=== PATIENT | female | born 1975 ===

== ENCOUNTER 2018-06-02 12:47 | Observation (INO) | payer OTHER ==
--- NOTE | 2018-06-02 14:03 | ED PDOC ---
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 She states she fell down 3 steps and sustained the injuries. Patient reports she thought her symptoms would improve without intervention, but her pain worsened yesterday, so she decided to come to ED today. She denies hitting her head or having any loss of consciousness. Patient has been taking aleve at home with her last dose yesterday. She has not taken any medications today [employer]. She states she is right hand dominant. Otherwise: (-) nausea, (-) vomiting, (-) dizziness, (-) headache, (-) recent fever, (-) chest pain, (-) abdominal pain, (-) blurred vision, (-) weakness, (-) numbness. 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 6 procedures to the right foot as a child - Family History Family History: States: Unknown Family Hx - Living Arrangements Living Arrangements: With Family - Social History Current smoker - smoking cessation education provided: No Drugs: Denies - Home Medications Home Medications: Ambulatory Orders Medication Instructions Recorded No Known Home Med 06/02/18 - Allergies Allergies/Adverse Reactions: Allergies Allergy/AdvReac Type Severity Reaction Status Date / Time Sulfa (Sulfonamide Allergy RASH Verified 06/02/18 13:19 Antibiotics) Review of Systems ROS Statement: Except As Marked, All Systems Reviewed And Found Negative Constitutional: Negative for: Fever Eyes: Negative for: Vision Change Cardiovascular: Negative for: Chest Pain Gastrointestinal: Negative for: Nausea, Vomiting, Abdominal Pain Musculoskeletal: Positive for: Neck Pain (right sided), Hand Pain (4th finger), Foot Pain (right) Neurological: Negative for: Weakness, Numbness, Headache, Dizziness, Other (LOC) Physical Exam - Reviewed Nursing Documentation Reviewed: Yes Vital Signs Reviewed: Yes - Physical Exam Comments: GENERAL APPEARANCE: Patient is awake, alert, oriented x 3, in no acute distress. Resting comfortably. SKIN: Warm, dry; (-) cyanosis. HEAD: (-) swelling and tenderness, with no palpable bony defect. EYES: (-) conjunctival injection ENMT: Mucous membranes moist. Nose: (-) tenderness. No oral trauma. Pharynx clear, uvula midline. Airway patent: (-) stridor. Full ROM of mandible without pain. NECK: Supple, FROM, (+) right paracervical and right trapezius tenderness with muscle spasm, (-) vertebral tenderness, (-) lymphadenopathy. CHEST AND RESPIRATORY: (-) rales, (-) rhonchi, (-) wheezes; breath sounds equal bilaterally. Respirations even and nonlabored. HEART AND CARDIOVASCULAR: (-) irregularity ABDOMEN AND GI: Soft; (-) tenderness (-) distention BACK: (-) midline tenderness. EXTREMITIES: Right upper extremity: (+) diffuse edema, ecchymosis, and tenderness to the right 4th digit; (+) decreased flexion secondary to pain, (+) sensation and capillary refill intact; remainder of hand, wrist and upper extremity are non tender with Full ROM (+) pulses Right Lower extremity: (+) multiple well healed surgical scars to the dorsum of right mid foot, (+) diffuse tenderness on right foot; (+) decreased ROM at baseline secondary to surgeries, (+) sensation and capillary refill intact, (-) edema, ecchymosis, erythema, or skin break. Ankle: (+) full ROM (-) tenderness, (-) calf tenderness, distal pulses 2+. NEURO AND PSYCH: GCS=15. Mental status as above. 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 EOMI and painles. (-) facial asymmetry. Tongue and uvula midline. Strength 5/5 in all extremities. No gross sensory deficits. Speech: clear. Cerebellar tests intact. - Laboratory Results Result Diagrams: 06/02/18 16:21 06/02/18 16:21 - ECG O2 Sat by Pulse Oximetry: 97 (RA) Pulse Ox Interpretation: Normal Medical Decision Making Medical Decision Making: Time: 134 Impression: cervical strain, acute finger and foot pain status post fall downstairs Plan: --Flexeril 10 mg PO (not driving home) --Toradol 30 mg IM --Right foot xray 3 views --Hand xrays 3 views Time: 141 Right hand xray FINDINGS: BONES: Fracture dislocation 4th digit proximal interphalangeal joint region. JOINTS: Normal. No osteoarthritic changes. SOFT TISSUES: Soft tissue swelling attests to the acuity of the fracture. OTHER FINDINGS: IMPRESSION: Acute oblique intra-articular fracture/dislocation middle phalanx right 4th digit. Time: 141 Right foot Xray findings: BONES: No acute fractures noted. A U-shaped 8 metallic screw associated with a 1st ta rsal metatarsal arthrodesis-is present-some osseous fusion mature appearing here is suggested. The navicular bone is abnormally narrow and misshapened- chronicity is inferred. JOINTS: Arthrosis advanced 1st metatarsal-phalangeal joint. Midfoot tarsal arthrosis in tarsal metatarsal osseous fusion/arthrodesis. Posterior subtalar joint arthrosis. Tail low navicular osteoarthrosis advanced appearing. Hammertoe orientations and clinodactyly suggested. SOFT TISSUES: Sheet like ossifications along the expected Achilles tendon distal site. Similar well corticated ossification in the plantar neurosis region. RF probable concomitant possible faint ossification and/or ossific debris lateral to the 1st metatarsal shaft. OTHER FINDINGS: None. IMPRESSION: No interval acute fracture suspect. Postop changes and arthrodesis/a mature appearing osseous fusion tarsal 1st metatarsal joint. Other soft tissue ossifications as above. Time: 1429 --In light of patient's xray findings, consult placed to Dr. Stewart(hand/plastics). Time: 1434 --Dr. Stewart is at bedside. Time: 1499 --Bedside reduction and splint performed by Dr Stewart. Dr Stewart recommends pre-op labs and will take patient to OR tomorrow. Dr Stewart contacted ophthalmology surgical technician who will see patient at bedside. Patient to be admitted to obs med/surg under Dr Stewart. Additional orders placed for medical clearance. Post reduction XRs ordered. Patient agreeable to admission. Time: 1540 EKG: NSR @ 74bpm (-) ST elevation, QTc 448 Date of service: 06/02/2018 HISTORY: clearance OR COMPARISON: No prior. FINDINGS: LUNGS: No active pulmonary disease. PLEURA: No significant pleural effusion identified, no pneumothorax apparent. CARDIOVASCULAR: No atherosclerotic calcification present Normal. OSSEOUS STRUCTURES: No significant abnormalities. VISUALIZED UPPER ABDOMEN: Normal. OTHER FINDINGS: None. IMPRESSION: No active disease. PROCEDURE: Right Hand Radiographs. (Post Reduction) HISTORY: post-reduction COMPARISON: None. TECHNIQUE: 3 views obtained. FINDINGS: BONES: The previously referenced 4th middle phalangeal intra-articular fracture di slocation (proximal interphalangeal joint) is again identified with overlying splinting with the 5th digit. The dorsal ulnar sided fracture fragment arising from this 4th proximal phalanx appears similarly dorsally displaced as before. No significant interval change between the pre and post reduction images is appreciated. JOINTS: Normal. No osteoarthritic changes. SOFT TISSUES: Soft tissue regional swelling as before OTHER FINDINGS: None. IMPRESSION: No significant tip apparent change in the intra-articular 4th phalangeal fracture-dislocation appearance as detailed above. Labs reviewed and grossly unremarkable. Scribe Attestation: Documented by Calvin George acting as a scribe for Xochitl Cisneros Provider Scribe Attestation: All medical record entries made by the Scribe were at my direction and personally dictated by me. I have reviewed the chart and agree that the record accurately reflects my personal performance of the history, physical exam, medical decision making, and the department course for this patient. I have also personally directed, reviewed, and agree with the discharge instructions and disposition. Disposition - Clinical Impression Clinical Impression: Displaced fracture of middle phalanx of finger of right hand, Cervical strain, acute, Fall down stairs, Foot pain - Patient ED Disposition Is Patient to be Admitted: Yes (med/surg obs) Discussed With : Zuleika Stewart Doctor Will See Patient In The: ED Counseled Patient/Family Regarding: Studies Performed, Diagnosis - Disposition Disposition Time: 15:00 Condition: STABLE - Pt Status Changed To: Hospital Disposition Of: Observation (med/surg for OR tomorrow) - POA Present On Arrival: Falls Or Trauma (1 week ago) Results - Diagnostic Imaging Results Radiology Results Foot X-Ray 06/02/18 13:44 IMPRESSION: No interval acute fracture suspect. Postop changes and arthrodesis/a mature appearing osseous fusion tarsal 1st metatarsal joint. Other soft tissue ossifications as above. Hand X-Ray 06/02/18 13:44 IMPRESSION: Acute oblique intra-articular fracture/dislocation middle phalanx right 4th digit. Chest X-Ray 06/02/18 15:00 IMPRESSION: No active disease. Hand X-Ray 06/02/18 15:02
--- NOTE | 2018-06-02 14:19 | RAD ---
PROCEDURE: Right Hand Radiographs. HISTORY: s/p fall, r/o fracture of 4th digit COMPARISON: None. TECHNIQUE: 3 views obtained. FINDINGS: BONES: Fracture dislocation 4th digit proximal interphalangeal joint region. JOINTS: Normal. No osteoarthritic changes. SOFT TISSUES: Soft tissue swelling attests to the acuity of the fracture. OTHER FINDINGS: IMPRESSION: Acute oblique intra-articular fracture/dislocation middle phalanx right 4th digit.
--- NOTE | 2018-06-02 14:20 | RAD ---
Date of service: 06/02/2018 PROCEDURE: Right Foot Radiographs. HISTORY: s/p fall, r/o fracture; hx of surgery COMPARISON: None. TECHNIQUE: 3 views obtained. FINDINGS: BONES: No acute fractures noted. A U-shaped 8 metallic screw associated with a 1st tarsal metatarsal arthrodesis-is present-some osseous fusion mature appearing here is suggested. The navicular bone is abnormally narrow and misshapened-chronicity is inferred. JOINTS: Arthrosis advanced 1st metatarsal-phalangeal joint. Midfoot tarsal arthrosis in tarsal metatarsal osseous fusion/arthrodesis. Posterior subtalar joint arthrosis. Tail low navicular osteoarthrosis advanced appearing. Hammertoe orientations and clinodactyly suggested. SOFT TISSUES: Sheet like ossifications along the expected Achilles tendon distal site. Similar well corticated ossification in the plantar neurosis region. RF probable concomitant possible faint ossification and/or ossific debris lateral to the 1st metatarsal shaft. OTHER FINDINGS: None. IMPRESSION: No interval acute fracture suspect. Postop changes and arthrodesis/a mature appearing osseous fusion tarsal 1st metatarsal joint. Other soft tissue ossifications as above.
--- NOTE | 2018-06-02 16:13 | RAD ---
Date of service: 06/02/2018 HISTORY: clearance OR COMPARISON: No prior. FINDINGS: LUNGS: No active pulmonary disease. PLEURA: No significant pleural effusion identified, no pneumothorax apparent. CARDIOVASCULAR: No atherosclerotic calcification present Normal. OSSEOUS STRUCTURES: No significant abnormalities. VISUALIZED UPPER ABDOMEN: Normal. OTHER FINDINGS: None. IMPRESSION: No active disease.
--- NOTE | 2018-06-02 16:14 | RAD ---
PROCEDURE: Right Hand Radiographs. HISTORY: pre-reduction COMPARISON: None. TECHNIQUE: 3 views obtained. FINDINGS: BONES: The previously referenced 4th middle phalangeal intra-articular fracture dislocation (proximal interphalangeal joint) is again identified with overlying splinting with the 5th digit. The dorsal ulnar sided fracture fragment arising from this 4th proximal phalanx appears similarly dorsally displaced as before. No significant interval change between the pre and post reduction images is appreciated. JOINTS: Normal. No osteoarthritic changes. SOFT TISSUES: Soft tissue regional swelling as before OTHER FINDINGS: None. IMPRESSION: No significant tip apparent change in the intra-articular 4th phalangeal fracture-dislocation appearance as detailed above.
[2018-06-02 16:33] LABS: BASO # 0.1 K/uL (0.0-0.2); BASO % 0.7 % (0.0-2.0); EOS # 0.2 K/uL (0.0-0.7); EOS % 1.8 % (0.0-4.0); HEMOGLOBIN 12.7 g/dL (12.0-16.0); LYMPH # 3.4 K/uL (1.0-4.3); LYMPH % 27.7 % (20.0-40.0); MEAN CORPUSCULAR HEMOGLOBIN 29.4 pg (27.0-31.0); MEAN CORPUSCULAR HGB CONC 33.4 g/dL (33.0-37.0); MEAN PLATELET VOLUME 8.2 fl (7.2-11.7); MONO # 0.6 K/uL (0.0-0.8); MONO % 4.6 % (0.0-10.0); NEUT # 8.1 K/uL (1.8-7.0); NEUT % 65.2 % (50.0-75.0); NRBC % 0.1 % (0.0-0.0); RBC 4.34 Mil/uL (3.80-5.20); RED CELL DISTRIBUTION WIDTH 14.4 % (11.5-14.5); WHITE BLOOD COUNT 12.4 K/uL (4.8-10.8)
[2018-06-02 16:36] LABS: ALB/GLOB RATIO 1.3 (1.0-2.1); ALBUMIN 4.1 g/dL (3.5-5.0); ALT/SGPT 37 U/L (9-52); AST/SGOT 30 U/L (14-36); BLOOD UREA NITROGEN 13 mg/dl (7-17); CALCIUM 9.1 mg/dL (8.4-10.2); GFR NON-AFRICAN AMERICAN > 60
[2018-06-02 16:54] LABS: INR 0.9; PROTHROMBIN TIME 10.3 Seconds (9.8-13.1)
[2018-06-02] MEDS ORDERED: Morphine 4 MG/ML VIAL IVP PRN (17:39)
--- NOTE | 2018-06-02 17:57 | CP.PCM.HP ---
History of Present Illness - History of Present Illness History of Present Illness: Plastic Surgery H & P for Dr. Froylan Lofton, PGY-2 Pt seen/examined at bedside 43F w/PMH sig for clubbed R foot and hx of brain aneurysm s/p surgery in [facility] admitted for Right 4th phalangeal fracture x 7 days. Pt reports she was walking up the 3 stairs to her home when she caught her foot on a stair and fell. She attempted to catch herself with her right hand then heard a crunching sound, resulting in progressive pain, swelling, bruising and decreased ability to flex her 4th finger at the middle joint. Pt reports 2 days later, she was talking on wet pavement and fell again, catching herself with her right forearm. Pt reported to the ED today due to right posterior neck pain, upon evaluation was found to have a R 4th middle phalangeal intra-articular fracture dislocation. Attending attempted manual reduction in ED without success. Pt reports continued pain, swelling, decreased mobilty of 4th finger. Denies N & V, F & C, dizziness, LOC, vision changes, CP, SOB, changes in bowel or bladder habits, other complaints at this time. PMH: brain aneurysm (1999), clubbed R foot PSH: Brain surgery, R foot surgery x 6 All: Sulfa SH: Denies ETOH, tobacco or illicit drug use FH: Non contributory PMD: in [facility] Present on Admission - Present on Admission Any Indicators Present on Admission: No History of DVT/PE: No History of Uncontrolled Diabetes: No Urinary Catheter: No Decubitus Ulcer Present: No Review of Systems - Review of Systems All systems: reviewed and no additional remarkable complaints except - Constitutional Constitutional: absent: Chills, Fever, Frequent Falls, Headache - EENT Ears: absent: Dizziness - Cardiovascular Cardiovascular: absent: Chest Pain - Gastrointestinal Gastrointestinal: absent: Abdominal Pain, Nausea, Vomiting - Genitourinary Genitourinary: absent: Change in Urinary Stream - Musculoskeletal Musculoskeletal: Neck Pain (posterior neck), Numbness (of right 4th finger). absent: Tingling - Integumentary Integumentary: absent: New Lesions - Neurological Neurological: absent: Disequilibrium, Dizziness, Syncope - Psychiatric Psychiatric: absent: Change in Appetite Past Patient History - Past Social History Smoking Status: Never Smoked - PSYCHIATRIC Hx Substance Use: No Meds Allergies/Adverse Reactions: Allergies Allergy/AdvReac Type Severity Reaction Status Date / Time Sulfa (Sulfonamide Allergy RASH Verified 06/02/18 13:19 Antibiotics) Physical Exam - Constitutional Appears: Non-toxic, No Acute Distress - Head Exam Head Exam: ATRAUMATIC, NORMAL INSPECTION, NORMOCEPHALIC - Eye Exam Eye Exam: EOMI, Normal appearance - ENT Exam ENT Exam: Mucous Membranes Moist, Normal Exam - Neck Exam Neck exam: Positive for: Full Rom. Negative for: Normal Inspection (muscle spasm of right posterior neck muscles) - Respiratory Exam Respiratory Exam: NORMAL BREATHING PATTERN - Cardiovascular Exam Cardiovascular Exam: REGULAR RHYTHM, +S1, +S2 - GI/Abdominal Exam GI & Abdominal Exam: Soft. absent: Distended (obese) - Extremities Exam Additional comments: Right hand with splint in place over 4th & 5th digits. Intact sensation, able to flex and extend distal phalanges. Swelling of 4th & 5th fingers, hand and wrist. - Neurological Exam Neurological exam: Alert, CN II-XII Intact, Oriented x3 - Psychiatric Exam Psychiatric exam: Normal Affect, Normal Mood - Skin Skin Exam: Dry, Intact, Normal Color, Warm Results - Vital Signs Recent Vital Signs: Last Vital Signs Temp 98.4 F 06/02/18 13:17 Pulse 82 06/02/18 13:17 Resp 16 06/02/18 13:17 BP 151/87 H 06/02/18 13:17 Pulse Ox 97 06/02/18 16:51 - Labs Result Diagrams: 06/02/18 16:21 06/02/18 16:21 Labs: Laboratory Results - last 24 hr 06/02/18 06/02/18 06/02/18 16:21 16:21 16:21 WBC 12.4 H RBC 4.34 Hgb 12.7 Hct 38.2 MCV 88.0 MCH 29.4 MCHC 33.4 RDW 14.4 Plt Count 347 MPV 8.2 Neut % (Auto) 65.2 Lymph % (Auto) 27.7 [place] % (Auto) 4.6 Eos % (Auto) 1.8 Baso % (Auto) 0.7 Neut # (Auto) 8.1 H Lymph # (Auto) 3.4 [place] # (Auto) 0.6 Eos # (Auto) 0.2 Baso # (Auto) 0.1 PT 10.3 INR 0.9 APTT 29.0 Sodium 135 Potassium 3.7 Chloride 101 Carbon Dioxide 26 Anion Gap 12 BUN 13 Creatinine 0.6 L Est GFR ( Amer) > 60 Est GFR (Non-Af Amer) > 60 Random Glucose 106 H Calcium 9.1 Total Bilirubin 0.2 AST 30 ALT 37 Alkaline Phosphatase 95 Total Protein 7.3 Albumin 4.1 Globulin 3.2 Albumin/Globulin Ratio 1.3 Assessment & Plan - Assessment and Plan (Free Text) Assessment: 43F w/4th R middle phalangeal intra-articular fracture dislocation s/p fall Plan: Admit to med/surg VS Q8H Activity as tolerated- ambulates OOBTC HHD NPO pMN Pain control IVF Anti-emetic PRN Elevate Right hand FU AM labs FU medical clearance prior to OR SCDs for DVT ppx DW Dr. Terry Lofton, PGY-2 - Date & Time Date: 06/02/18 Time: 18:01 Decision To Admit - Pt Status Changed To: Hospital Disposition Of: Observation - . Bed Request Type: Med/Surg Admitting Physician: Zuleika Stewart
--- NOTE | 2018-06-02 18:11 | CP.PCM.CON ---
<Mima Verduzco - Last Filed: 06/02/18 18:42> History of Present Illness - History of Present Illness History of Present Illness: 43 Female patient w/PMH of clubbed R foot and hx of brain aneurysm s/p surgery in [facility] admitted for Right 4th phalangeal fracture x 7 days. Pt reports she was walking up the 3 stairs to her home when she caught her foot on a stair and fell. Pt came to the ED today due to neck pain and upon evaluation was found to have a R 4th middle phalangeal intra-articular fracture dislocation. Patient endorses last head CT done 10 years ago and wnl. Patient denies any h/o HTN, HLD or DM and she does not take any medication on regular bases. She reports she live in 3 floor and she is able to climb the stairs and walk around w/o get sob or chest pain. Otherwise she denies recent F/C/N/V, dizziness, LOC, blurry vision, [place], CP, SOB, changes in bowel or bladder habits, other complaints at this time. PMD: in [facility] PMH: brain aneurysm, clubbed R foot PSH: Brain surgery on 1999, R foot surgery x 6 All: Sulfa SH: Denies ETOH, tobacco or illicit drug use FH: Non contributory Review of Systems - Review of Systems All systems: reviewed and no additional remarkable complaints except (HPI) Past Patient History - Past Social History Smoking Status: Never Smoked - PSYCHIATRIC Hx Substance Use: No Meds Allergies/Adverse Reactions: Allergies Allergy/AdvReac Type Severity Reaction Status Date / Time Sulfa (Sulfonamide Allergy RASH Verified 06/02/18 13:19 Antibiotics) - Medications Medications: Current Medications Lactated Ringer's (Lactated Ringer's) 1,000 mls @ 150 mls/hr IV .Q6H40M [facility] Ketorolac Tromethamine (Toradol) 15 mg IVP Q6 PRN PRN Reason: Pain, moderate (4-7) Morphine Sulfate (Morphine) 4 mg IVP Q4 PRN PRN Reason: Pain, severe (8-10) Ondansetron HCl (Zofran Inj) 4 mg IVP Q6 PRN PRN Reason: Nausea/Vomiting Physical Exam - Constitutional Appears: No Acute Distress - Head Exam Head Exam: NORMAL INSPECTION - Eye Exam Eye Exam: EOMI, PERRL. absent: Nystagmus Pupil Exam: NORMAL ACCOMODATION, PERRL - ENT Exam ENT Exam: Mucous Membranes Moist - Neck Exam Neck exam: Positive for: Full Rom, Normal Inspection. Negative for: Lymphadenopathy, Thyromegaly - Respiratory Exam Respiratory Exam: Clear to Auscultation Bilateral, NORMAL BREATHING PATTERN. absent: Rales, Wheezes - Cardiovascular Exam Cardiovascular Exam: REGULAR RHYTHM, +S1, +S2. absent: Tachycardia, Systolic Murmur - GI/Abdominal Exam GI & Abdominal Exam: Normal Bowel Sounds, Soft. absent: Distended, Tenderness - Extremities Exam Extremities exam: Negative for: calf tenderness, pedal edema Additional comments: RU arm: cast noted in place, clean and intact, able to move rest of fingers w/o difficulty, sensation intact. - Back Exam Back exam: NORMAL INSPECTION. absent: CVA tenderness (L), CVA tenderness (R), paraspinal tenderness - Neurological Exam Neurological exam: Alert, CN II-XII Intact, Oriented x3 - Psychiatric Exam Psychiatric exam: Normal Affect - Skin Skin Exam: Dry, Normal Color, Warm Results - Vital Signs Recent Vital Signs: Last Vital Signs Temp 98.4 F 06/02/18 13:17 Pulse 82 06/02/18 13:17 Resp 16 06/02/18 13:17 BP 151/87 H 06/02/18 13:17 Pulse Ox 97 06/02/18 16:51 - Labs Result Diagrams: 06/02/18 16:21 06/02/18 16:21 Labs: Laboratory Results - last 24 hr 06/02/18 06/02/18 06/02/18 16:21 16:21 16:21 WBC 12.4 H RBC 4.34 Hgb 12.7 Hct 38.2 MCV 88.0 MCH 29.4 MCHC 33.4 RDW 14.4 Plt Count 347 MPV 8.2 Neut % (Auto) 65.2 Lymph % (Auto) 27.7 [place] % (Auto) 4.6 Eos % (Auto) 1.8 Baso % (Auto) 0.7 Neut # (Auto) 8.1 H Lymph # (Auto) 3.4 [place] # (Auto) 0.6 Eos # (Auto) 0.2 Baso # (Auto) 0.1 PT 10.3 INR 0.9 APTT 29.0 Sodium 135 Potassium 3.7 Chloride 101 Carbon Dioxide 26 Anion Gap 12 BUN 13 Creatinine 0.6 L Est GFR ( Amer) > 60 Est GFR (Non-Af Amer) > 60 Random Glucose 106 H Calcium 9.1 Total Bilirubin 0.2 AST 30 ALT 37 Alkaline Phosphatase 95 Total Protein 7.3 Albumin 4.1 Globulin 3.2 Albumin/Globulin Ratio 1.3 Assessment & Plan - Assessment and Plan (Free Text) Assessment: 43 yo Female admitted due to 4th R middle phalangeal intra-articular dislocated fracture, s/p mechanical fall. Plan: - VSS - EKG: NSR at 76 bpm, no acute changes - CXR: negative for active lung disease - NPO after MN - Pain control - IVF - labs in am - f/u surgery recommendations - Patient medically cleared for surgery Patient discussed with Dr Swain <Prisca Swain - Last Filed: 06/04/18 21:45> Results - Vital Signs Recent Vital Signs: Last Vital Signs Temp 97.5 F L 06/04/18 07:51 Pulse 81 06/04/18 07:51 Resp 19 06/04/18 07:51 BP 129/85 06/04/18 07:51 Pulse Ox 97 06/04/18 07:51 - Labs Result Diagrams: 06/03/18 06:14 06/03/18 06:14 Attending/Attestation - Attestation I have personally seen and examined this patient.: Yes I have fully participated in the care of the patient.: Yes I have reviewed all pertinent clinical information: Yes Notes (Text): agree with findings and plan as above.
[2018-06-02] MEDS: Lactated Ringer's 1,000 ML IV SCH (23:50)
[2018-06-03 05:23] LABS: SQUAMOUS EPITHIAL < 1 /hpf (0-5); URINE BILIRUBIN NEGATIVE (NEGATIVE); URINE BLOOD NEGATIVE (NEGATIVE); URINE CLARITY CLEAR (Clear); URINE COLOR YELLOW (YELLOW); URINE GLUCOSE (UA) NEG (NEGATIVE); URINE LEUKOCYTE ESTERASE NEG Leu/uL (Negative); URINE PROTEIN NEGATIVE (NEGATIVE); URINE UROBILINOGEN 0.2-1.0 mg/dL (0.2-1.0)
[2018-06-03 07:07] LABS: HEMOGLOBIN 12.2 g/dL (12.0-16.0); MEAN CELL VOLUME 88.6 fl (81.0-99.0); MEAN CORPUSCULAR HEMOGLOBIN 29.1 pg (27.0-31.0); MEAN CORPUSCULAR HGB CONC 32.9 g/dL (33.0-37.0); RBC 4.19 Mil/uL (3.80-5.20); RED CELL DISTRIBUTION WIDTH 14.4 % (11.5-14.5); WHITE BLOOD COUNT 12.1 K/uL (4.8-10.8)
[2018-06-03 07:19] LABS: INR 0.9; PROTHROMBIN TIME 10.6 Seconds (9.8-13.1)
[2018-06-03 07:22] LABS: PARTIAL THROMBOPLASTIN TIME 28.1 Seconds (25.6-37.1)
[2018-06-03 07:44] LABS: BLOOD UREA NITROGEN 17 mg/dl (7-17); CALCIUM 9.1 mg/dL (8.4-10.2); GFR NON-AFRICAN AMERICAN > 60
--- NOTE | 2018-06-03 08:17 | CP.PCM.PN ---
<GrazynaCaroline - Last Filed: 06/03/18 13:08> Subjective - Date & Time of Evaluation Date of Evaluation: 06/03/18 Time of Evaluation: 08:00 - Subjective Subjective: 43 yo Female admitted due to 4th R middle phalangeal intra-articular dislocated fracture, s/p mechanical fall. Pt seen and examined at bedside. Reports right sided headache and r hand pain. Denies weakness or loss of feeling in hand. Pt denies F/C/CP/SOB/N/V/D/C or dysuria. Objective - Vital Signs/Intake and Output Vital Signs (last 24 hours): Temp Pulse Resp BP Pulse Ox 97.1 F L 65 20 145/89 95 06/03/18 07:50 06/03/18 07:50 06/03/18 07:50 06/03/18 07:50 06/03/18 07:50 - Medications Medications: Current Medications Lactated Ringer's (Lactated Ringer's) 1,000 mls @ 150 mls/hr IV .[id number] STEPH Last Admin: 06/02/18 23:50 Dose: 150 mls/hr Ketorolac Tromethamine (Toradol) 15 mg IVP Q6 PRN PRN Reason: Pain, moderate (4-7) Last Admin: 06/03/18 04:23 Dose: 15 mg Morphine Sulfate (Morphine) 4 mg IVP Q4 PRN PRN Reason: Pain, severe (8-10) Ondansetron HCl (Zofran Inj) 4 mg IVP Q6 PRN PRN Reason: Nausea/Vomiting - Labs Labs: 06/03/18 06:14 06/03/18 06:14 PT 10.6 Seconds (9.8-13.1) 06/03/18 06:14 INR 0.9 06/03/18 06:14 APTT 28.1 Seconds (25.6-37.1) 06/03/18 06:14 - Constitutional Appears: Non-toxic, No Acute Distress - Head Exam Head Exam: NORMAL INSPECTION - Eye Exam Eye Exam: EOMI - ENT Exam ENT Exam: Mucous Membranes Moist - Respiratory Exam Respiratory Exam: Clear to Ausculation Bilateral. absent: Rales, Rhonchi, Wheezes - Cardiovascular Exam Cardiovascular Exam: RRR, +S1, +S2 - GI/Abdominal Exam GI & Abdominal Exam: Soft, Normal Bowel Sounds. absent: Tenderness - Extremities Exam Additional comments: Right hand 4th and 5th digit, and wrist wrapped in rishi bandage clean and dry - Neurological Exam Neurological Exam: Alert, Awake, Oriented x3 Assessment and Plan - Assessment and Plan (Free Text) Assessment: 43 yo Female admitted due to 4th R middle phalangeal intra-articular dislocated fracture, s/p mechanical fall. Plan: 4th R middle phalangeal intra-articular dislocated fracture - pt evaluated,VSS, labs reviewed, Leukocytosis-likely stress rxn - EKG: NSR at 76 bpm, no acute changes - CXR: negative for active lung disease - Pain control, SCD's, tylenol for headache - NPO diet - LR's @150 - Patient medically stable for surgery - Low risk for moderate risk surgery Medicine team appreciates the consult, reconsult if necessary <Prisca Swain - Last Filed: 06/04/18 21:43> Objective - Vital Signs/Intake and Output Vital Signs (last 24 hours): Temp Pulse Resp BP Pulse Ox 97.5 F L 81 19 129/85 97 06/04/18 07:51 06/04/18 07:51 06/04/18 07:51 06/04/18 07:51 06/04/18 07:51 - Labs Labs: 06/03/18 06:14 06/03/18 06:14 PT 10.6 Seconds (9.8-13.1) 06/03/18 06:14 INR 0.9 06/03/18 06:14 APTT 28.1 Seconds (25.6-37.1) 06/03/18 06:14 Attending/Attestation - Attestation I have personally seen and examined this patient.: Yes I have fully participated in the care of the patient.: Yes I have reviewed all pertinent clinical information, including history, physical exam and plan: Yes Notes (Text): agree with findings and plan as above.
--- NOTE | 2018-06-03 08:21 | CARD ---
APPROVED REPORT Date of service: 06/02/2018 EKG Measurement Heart [id number] <Conclusion> Normal sinus rhythm Nonspecific T wave abnormality Abnormal ECG
[2018-06-03] MEDS: Lactated Ringer's 1,000 ML IV SCH ×2 (11:55→21:00)
[2018-06-03] MEDS ORDERED: Lidocaine 1% Inj (20ml) ONE (14:55)
[2018-06-03] MEDS ORDERED: Succinylcholine Chloride 20 mg/ml Syr (5 ml) IV ONE (15:03)
[2018-06-03] MEDS ORDERED: Propofol 10 mg/ml Inj (20 ML) ONE (15:03)
[2018-06-03] MEDS ORDERED: Lactated Ringer's 1,000 ML IV ONE (15:07)
[2018-06-03] MEDS: Bupivacaine 0.5% Inj(30mL) ONE ×2 (15:35→16:55)
[2018-06-03] MEDS ORDERED: Lactated Ringer's 500 ML IV ONE (16:40)
[2018-06-03] MEDS ORDERED: HYDROmorphone 0.5 mg/0.5 ml ISec IVP PRN (17:19)
[2018-06-03] MEDS ORDERED: Lactated Ringer's 1,000 ML IV SCH (17:30)
--- NOTE | 2018-06-03 21:58 | PCM.SURG1 ---
Surgeon's Initial Post Op Note - Surgeon's Notes Surgeon: Dr. Stewart Grader Green Meat: Dr. Magaña, PGY 1 Type of Anesthesia: General Endo Anesthesia Administered By: Dr. Yadav Pre-Operative Diagnosis: intra-articular right 4th finger phalageal fracture- dislocation Operative Findings: see operative report Post-Operative Diagnosis: intra-articular right 4th finger phalageal fracture- dislocation Operation Performed: open reduction and internal fixation of right ring finger phalangeal fracture Specimen/Specimens Removed: none Estimated Blood Loss: EBL {In ML}: 2 Blood Products Given: N/A Drains Used: No Drains Post-Op Condition: Good Date of Surgery/Procedure: 06/03/18 Time of Surgery/Procedure: 15:00
[2018-06-04 07:51] VITALS: BP 129/85; PULSE 81; RESP 19; TEMP 97.5; O2SAT 97
--- NOTE | 2018-06-04 08:17 | CP.PCM.PN ---
Subjective - Date & Time of Evaluation Date of Evaluation: 06/04/18 Time of Evaluation: 08:17 - Subjective Subjective: General Surgery Note: Dr. Stewart 43 year old female patient seen and examined at bedside this AM, POD#1 right 4th finger ORIF of phalanx. Patient resting comfortably in bed, no acute events overnight. She admits to right hand pain this morning, however pain is well controlled with the pain medication she has been given. Cast clean/dry/intact. R arm elevated at this time. Denies nausea/vomiting/fever/shortness of breath. Objective - Vital Signs/Intake and Output Vital Signs (last 24 hours): Temp Pulse Resp BP Pulse Ox 97.5 F L 81 19 129/85 97 06/04/18 07:51 06/04/18 07:51 06/04/18 07:51 06/04/18 07:51 06/04/18 07:51 - Medications Medications: Current Medications Lactated Ringer's (Lactated Ringer's) 1,000 mls @ 75 mls/hr IV .[id number] STEPH Last Admin: 06/04/18 07:20 Dose: Not Given Ketorolac Tromethamine (Toradol) 30 mg IVP Q6 PRN PRN Reason: Pain, moderate (4-7) Last Admin: 06/03/18 22:04 Dose: 30 mg Morphine Sulfate (Morphine) 4 mg IVP Q4 PRN PRN Reason: Pain, severe (8-10) Last Admin: 06/04/18 05:41 Dose: 4 mg Ondansetron HCl (Zofran Inj) 4 mg IVP Q6 PRN PRN Reason: Nausea/Vomiting - Labs Labs: 06/03/18 06:14 06/03/18 06:14 PT 10.6 Seconds (9.8-13.1) 06/03/18 06:14 INR 0.9 06/03/18 06:14 APTT 28.1 Seconds (25.6-37.1) 06/03/18 06:14 - Constitutional Appears: Non-toxic, No Acute Distress - Head Exam Head Exam: ATRAUMATIC, NORMOCEPHALIC - Eye Exam Eye Exam: Normal appearance Pupil Exam: NORMAL ACCOMODATION - ENT Exam ENT Exam: Mucous Membranes Moist - Respiratory Exam Respiratory Exam: NORMAL BREATHING PATTERN - Cardiovascular Exam Cardiovascular Exam: REGULAR RHYTHM - GI/Abdominal Exam GI & Abdominal Exam: Soft, Normal Bowel Sounds. absent: Distended, Tenderness - Extremities Exam Extremities Exam: Normal Capillary Refill. absent: Calf Tenderness Additional comments: Cast clean/dry/intact CFT WNL - Neurological Exam Neurological Exam: Alert, Awake, Oriented x3 - Psychiatric Exam Psychiatric exam: Normal Affect, Normal Mood - Skin Skin Exam: Warm Assessment and Plan - Assessment and Plan (Free Text) Assessment: 43 year old female patient POD#1 right 4th finger ORIF of phalanx, s/p mechanical fall. Plan: - Pain control - Ice and elevate PRN - Patient stable for d/c from surgery standpoint - Further recs per Dr. Terry Garza PGY1
--- NOTE | 2018-06-04 08:42 | CP.PCM.DIS ---
Provider - Provider Date of Admission: 06/02/18 15:08 Attending physician: Zuleika Stewart MD Consults: 06/02/18 17:46 Internal Medicine Consult Stat Comment: Consulting Provider: Prisca Swain Consulting Physician: Prisca Swain Reason for Consult: medical optimization and risk stratification prior to OR Time Spent in preparation of Discharge (in minutes): 30 Hospital Course - Lab Results Lab Results: Most Recent Lab Values WBC 12.1 K/uL (4.8-10.8) H 06/03/18 06:14 RBC 4.19 Mil/uL (3.80-5.20) 06/03/18 06:14 Hgb 12.2 g/dL (12.0-16.0) 06/03/18 06:14 Hct 37.1 % (34.0-47.0) 06/03/18 06:14 MCV 88.6 fl (81.0-99.0) 06/03/18 06:14 MCH 29.1 pg (27.0-31.0) 06/03/18 06:14 MCHC 32.9 g/dL (33.0-37.0) L 06/03/18 06:14 RDW 14.4 % (11.5-14.5) 06/03/18 06:14 Plt Count 305 K/uL (130-400) 06/03/18 06:14 MPV 8.2 fl (7.2-11.7) 06/02/18 16:21 Neut % (Auto) 65.2 % (50.0-75.0) 06/02/18 16:21 Lymph % (Auto) 27.7 % (20.0-40.0) 06/02/18 16:21 [place] % (Auto) 4.6 % (0.0-10.0) 06/02/18 16:21 Eos % (Auto) 1.8 % (0.0-4.0) 06/02/18 16:21 Baso % (Auto) 0.7 % (0.0-2.0) 06/02/18 16:21 Neut # (Auto) 8.1 K/uL (1.8-7.0) H 06/02/18 16:21 Lymph # (Auto) 3.4 K/uL (1.0-4.3) 06/02/18 16:21 [place] # (Auto) 0.6 K/uL (0.0-0.8) 06/02/18 16:21 Eos # (Auto) 0.2 K/uL (0.0-0.7) 06/02/18 16:21 Baso # (Auto) 0.1 K/uL (0.0-0.2) 06/02/18 16:21 PT 10.6 Seconds (9.8-13.1) 06/03/18 06:14 INR 0.9 06/03/18 06:14 APTT 28.1 Seconds (25.6-37.1) 06/03/18 06:14 Sodium 137 mmol/l (132-148) 06/03/18 06:14 Potassium 3.9 MMOL/L (3.6-5.0) 06/03/18 06:14 Chloride 103 mmol/L (98-107) 06/03/18 06:14 Carbon Dioxide 26 mmol/L (22-30) 06/03/18 06:14 Anion Gap 12 (10-20) 06/03/18 06:14 BUN 17 mg/dl (7-17) 06/03/18 06:14 Creatinine 0.6 mg/dl (0.7-1.2) L 06/03/18 06:14 Est GFR ( Amer) > 60 06/03/18 06:14 Est GFR (Non-Af Amer) > 60 06/03/18 06:14 Random Glucose 103 mg/dL (65-105) 06/03/18 06:14 Calcium 9.1 mg/dL (8.4-10.2) 06/03/18 06:14 Total Bilirubin 0.2 mg/dl (0.2-1.3) 06/02/18 16:21 AST 30 U/L (14-36) 06/02/18 16:21 ALT 37 U/L (9-52) 06/02/18 16:21 Alkaline Phosphatase 95 U/L (38-126) 06/02/18 16:21 Total Protein 7.3 G/DL (6.3-8.2) 06/02/18 16:21 Albumin 4.1 g/dL (3.5-5.0) 06/02/18 16:21 Globulin 3.2 gm/dL (2.2-3.9) 06/02/18 16:21 Albumin/Globulin Ratio 1.3 (1.0-2.1) 06/02/18 16:21 Urine Color Yellow (YELLOW) 06/03/18 04:45 Urine Clarity Clear (Clear) 06/03/18 04:45 Urine pH 6.0 (5.0-8.0) 06/03/18 04:45 Ur Specific [place] 1.020 (1.003-1.030) 06/03/18 04:45 Urine Protein Negative mg/dL (NEGATIVE) 06/03/18 04:45 Urine Glucose (UA) Neg mg/dL (NEGATIVE) 06/03/18 04:45 Urine Ketones Negative mg/dL (NEGATIVE) 06/03/18 04:45 Urine Blood Negative (NEGATIVE) 06/03/18 04:45 Urine Nitrate Negative (NEGATIVE) 06/03/18 04:45 Urine Bilirubin Negative (NEGATIVE) 06/03/18 04:45 Urine Urobilinogen 0.2-1.0 mg/dL (0.2-1.0) 06/03/18 04:45 Ur Leukocyte Esterase Neg Dominic/uL (Negative) 06/03/18 04:45 Urine RBC (Auto) < 1 /hpf (0-3) 06/03/18 04:45 Ur Squamous Epith Cells < 1 /hpf (0-5) 06/03/18 04:45 - Hospital Course Hospital Course: 43 year old female patient admitted on 06/03/18 for right 4th phalanx fracture secondary to mechanical fall. During her hospital course, medical clearance was obtained and patient was taken to the operating room for right 4th finger ORIF of phalanx with Dr. Stewart. On day of discharge, patient is tolerating diet and pain is well controlled to the right hand. Discussed with patient the importance of leaving dressing clean, dry, and intact to right hand and ice/evaluate PRN. Patient given prescription for Cephalexin 500mg PO TID x 7 days with recommendations for OTC Tylenol PO PRN for pain control. Patient to follow up with Dr. Stewart within 1 week for continued care. - Date & Time of H&P Date of H&P: 06/04/18 Time of H&P: 08:42 Discharge Exam - Head Exam Head Exam: ATRAUMATIC, NORMOCEPHALIC - Eye Exam Eye Exam: Normal appearance Pupil Exam: NORMAL ACCOMODATION - Respiratory Exam Respiratory Exam: NORMAL BREATHING PATTERN - Cardiovascular Exam Cardiovascular Exam: REGULAR RHYTHM - Extremities Exam Extremities exam: calf tenderness, normal capillary refill Additional comments: Dressing to right hand clean/dry/intact at this time with no strike through CFT WNL - Neurological Exam Neurological exam: Alert, Oriented x3 - Psychiatric Exam Psychiatric exam: Normal Affect, Normal Mood - Skin Skin Exam: Warm Discharge Plan - Discharge Medications Prescriptions: Cephalexin [cephalexin] 500 mg PO TID 7 Days cap - Follow Up Plan Condition: STABLE Disposition: HOME/ ROUTINE Instructions: Finger Fracture (DC) Additional Instructions: Please follow up with Dr. Stewart in 1-2 weeks after surgical intervention Referrals: Zuleika Stewart MD [Medical Doctor] -
--- NOTE | 2018-06-08 21:16 | CON ---
DATE: 06/02/2018 EMERGENCY ROOM CONSULTATION ER consultation is as follows. SURGEON: Zuleika Stewart MD HISTORY OF PRESENT ILLNESS: This is a 43-year-old right hand dominant female who badly injured her right hand by falling down stairs at home approximately one week ago. The patient did not seek medical attention until today. Today, she showed up to the emergency room, complaining of right fourth finger/ring finger pain. X-ray done today in the emergency room showed a comminuted impacted right ring finger middle phalanx fracture at PIP joint. I was consulted emergently as the hand surgeon on-call for the terrible fracture. I came in to evaluate and treat the patient. PHYSICAL EXAMINATION: The patient had tenderness and swelling to the right ring finger PIP joint as well as the middle phalanx. The distal phalanx and MCP joints were not tender. The other fingers were not tender. She was able to grossly flex and extend the digit, but it was limited secondary to the acute fracture. She was neurovascularly intact. There was good capillary refill. The other bones of the hand were not tender. ASSESSMENT AND PLAN: I reviewed the x-ray with the patient. I explained to her she has a very complicated impacted comminuted fracture of the middle phalanx at the proximal interphalangeal joint. She has very poor prognosis, however since it was significantly impacted about 1 cm, she needs to go to the operating room for either pinning or internal fixation. The patient agreed to this. She was then admitted to the hospital and taken the following day for emergent surgery. But before that in the emergency room, I said I would perform a closed reduction with manipulation to see if the fracture moves and to try to get better x-rays. I will now dictate that operative report. Zuleika Stewart MD
--- NOTE | 2018-06-08 21:31 | OP ---
PROCEDURE DATE: 06/02/2018 SURGEON: Zuleika Stewart MD PREOPERATIVE DIAGNOSIS: Right ring finger displaced, comminuted middle phalanx fracture at the proximal interphalangeal joint. POSTOPERATIVE DIAGNOSIS: Right ring finger displaced, comminuted middle phalanx fracture at the proximal interphalangeal joint. PROCEDURE PERFORMED: Close reduction with manipulation of right ring finger middle phalanx fracture at the proximal interphalangeal joint. ANESTHESIA: Regional: 1. Right ring finger radial digital nerve block. 2. Right ring finger ulnar digital nerve block. INDICATIONS FOR THE PROCEDURE: As follows: Please refer to my separately dictated ER consultation for history and physical. DESCRIPTION OF THE PROCEDURE: As follows: Marcaine 0.5% was used in the right ring finger radial and ulnar digital nerve block. After allowing sufficient time for the anesthetic to take effect, I then performed a close reduction with manipulation by performing dorsal distraction and longitudinal traction and flexing. In the right ring finger, there was some swelling at the PIP joint. I was unsure if the reduction was adequate. I then fabricated and secured. After doing the close reduction, a volar splint with the right wrist extended, and all the digits flexed 60 degrees at the MCP and the IP at 0 degree. We then sent the patient for a post-reduction x-ray. There was some improvement; however, it was still slightly impacted and comminuted necessitating operative intervention. The patient was then admitted since it was late to go to the operating room on the following day, so we had the appropriate instrumentation for possible open reduction and internal fixation or pinning. I will now dictate separate operative report. Zuleika Stewart MD MTDIveth
--- NOTE | 2018-06-08 23:06 | OP ---
PROCEDURE DATE: 06/03/2018 SURGEON: Zuleika Stewart MD RIBBON TIER: Muriel Magaña DO ANESTHESIOLOGIST: Alex Yadav MD ANESTHESIA: General anesthesia with LMA as well as regional. PREOPERATIVE DIAGNOSIS: Right ring finger middle phalanx comminuted impacted fracture at the PIP joint. POSTOPERATIVE DIAGNOSIS: Right ring finger middle phalanx comminuted impacted fracture at the PIP joint. PROCEDURE PERFORMED: As follows: 1. Open reduction and internal fixation of right ring finger middle phalanx fracture at the PIP joint. 2. Debridement of bony fracture, open fracture site of bone and open fracture site of right ring finger middle phalanx comminuted fracture at the PIP joint. TYPE OF ANESTHESIA: General as well as regional. 1. Right ring finger radial digital nerve block. 2. Right ring finger ulnar digital nerve block. INDICATIONS FOR PROCEDURE: As follows: This is a female. Please refer to my separately dictated ER consultation and ER op note. We performed a close reduction with manipulation yesterday trying to reduce this 1-week-old compacted very complex fracture with minimal success. The patient is going to the operating room today. In front of hospital staff as well as the patient and the patient's the day prior, I explained to her the very poor prognosis of this type of injury. I told her this is a comminuted impacted fracture at the PIP joint and she has a very high likelihood of stiffness and arthritis and immobility of that right ring finger. There is likely going to be swelling in the future. She is going to be splinted for a few weeks and then she is going to need extensive hand therapy. She is likely going to have poor outcome and poor function of the right ring finger and she may need to have additional procedures in the future based on the complex nature of the fracture. I also explained to her that we would try to do this percutaneously with pins and if that did not work, we would try to make an incision and put some screws. I told her that the fracture fragment extended to the PIP joints would not be an option, so it would either be screws or pins and either way, it is a very complex injury that is going to have likely poor prognosis in terms of range of motion. The patient fully understood this and agreed to proceed. DESCRIPTION OF PROCEDURE: As follows: The patient was taken to the operating room and placed under general anesthesia with an LMA by anesthesia after perioperative antibiotics were given and SCDs were placed in bilateral lower extremities. An 0.5% Marcaine was used in the right ring finger ulnar and radial digital nerve block for postop analgesia. Right upper extremity was prepped and draped in the usual clean and sterile manner. I started the operation by first using the mini C-arm and tried to perform a closed reduction with manipulation and percutaneous pinning. There was a long dorsal fragment that was angulated that we were able to reduce by placing longitudinal traction. I then placed two 0.45 K-wires in a posterior to anterior manner on the dorsal aspect to reduce the fractures. After doing this, I flexed the PIP joint and the fracture site broke apart, unable to hold any traction on it. Due to this reason, we decided to make an open incision and attempt internal fixation with lag screws. A tourniquet was placed at the base of the right ring finger with Luis E drain after the arm was elevated and then in the dorsum over the PIP joint, we localized with the mini C-arm where the fracture fragment was. Then, we made an incision in the midline vertical with a #15 blade. We dissected down and kept the lateral bands of the extensor tendon mechanism out of our view and then we cut through the periosteum with a #15 blade. We then performed an open reduction of the fracture site and then we cleaned off any soft tissue between the two fracture fragments. On the dorsal aspect, it appeared that the fracture was not comminuted. However, we could not evaluate the volar aspect. We then used a [employer]ynthes hand tray and modular tray and we tried to put lag screws in. So, we first did a unicortical drilling with a 1.5 drill and then we used the 1.1 drill for the second cortex. We then placed the lag screw after using a depth gauge on the proximal aspect of the fracture of the middle phalanx just distal to the PIP joint. After doing this, we were unable to get a good bite or any good purchase. So, I went more distal about 1 cm distal and at this time, I did a 1.1 drill bicortical and we tried to place another screw and again we only got minimal purchase. After doing this, then I flexed the finger at the PIP joint. The fracture distracted and the repair broke apart. It appeared at this point that on the volar aspect the bone was very comminuted. I then attempted a third more distal drilling with a 1.1 drill and when I put the screw in, the fracture fragments started to break. I debrided some of the fracture fragments joint and removed it with a small rongeur. At this point, there was no option for any internal fixation with screws or plate, so then I placed longitudinal fraction and drilled a 0.45 K-wire retrograde just volar to the nail plate across the DIP and PIP joints and went to the mid portion of the proximal phalanx with the finger in the neutral position. I then placed a transverse 0.35 K-wire to compress the fragments after we clamped it with a bone clamp. After doing this, on AP, PA, oblique, reverse oblique and lateral views, there was excellent alignment and episcopal of the joint and there did not appear to be any gaps. We then irrigated the wound, closed some of the soft tissue over the fracture site with 4-0 Vicryl sutures, closed the skin with 4-0 chromic interrupted. Removed the tourniquet, placed a Xeroform, dry sterile dressing, Debbie wrap, shortened the pins and capped them and then fabricating secured a volar splint with the right wrist extended and the fourth and fifth fingers flexed at 60 degrees and the IP's at 0 degrees protecting the pins. Once the splint hardened, then we allowed the patient to move and awake from anesthesia, and a shoulder sling was placed in the right upper extremity. The patient then awoke from anesthesia, transferred to the recovery room in stable condition. FINDINGS: As above. SPECIMENS: None. COMPLICATIONS: None. ESTIMATED BLOOD LOSS: 5 mL. CONDITION: Stable. DRAINS: A 0.45 K-wire and one 0.35 K-wire, right ring finger. Zuleika Stewart MD MTDIveth
== END 2018-06-04 13:19 | disposition home or self-care (01) ==
LOC: H.ER 12:47 → H.ERHOLD 15:08 → H.MEDSURG1 19:45
PROVIDERS: ADMIT Surgery; ATTEND Surgery
DX: S62.624B Displaced fracture of middle phalanx of right ring finger, initial encounter for open fracture (principal); S16.1XXA Strain of muscle, fascia and tendon at neck level, initial encounter; W10.9XXA Fall (on) (from) unspecified stairs and steps, initial encounter; Q66.89 Other specified congenital deformities of feet; Z88.2 Allergy status to sulfonamides; Y92.9 Unspecified place or not applicable
CPT/HCPCS: 11012; 26725; 26735; 36415; 71045; 73130; 73630; 80048; 80053; 81003; 81025; 85025; 85027; 85610; 85730; 93005; 96372; 99283; G0378; J0690; J1170; J1885; J2001; J2270; J2704; J3010; J7120